=== PATIENT | male | born 1960 | race Caucasian/White ===

== ENCOUNTER 2019-12-15 12:39 | Outpatient (CLI) | payer BC, SELFPAY ==
--- NOTE | ~2019-12-15 | XR_ITS ---
EXAMINATION: XR chest 2V DATE: 12/15/2019 12:55 INDICATION: Cough. Lump on right clavicle. TECHNIQUE: Frontal and lateral views of the chest were obtained. COMPARISON: None. FINDINGS: Bone alignment is normal. No fracture. Joint spaces are well maintained. There is mild righ t acromioclavicular joint osteoarthritis. IMPRESSION: 1. No acute cardiopulmonary disease. Reviewed, dictated and finalized at location A. GE PIPEMAN
== END 2019-12-15 12:40 | disposition home or self-care (01) ==
LOC: ANHIMG 12:45
PROVIDERS: PCP Family Medicine; Visit Provider Physician Assistant Medical
DX: R05 Cough (principal)
CPT/HCPCS: 71046

== ENCOUNTER → 2020-10-23 11:36 | Outpatient (CLI) | payer BC, SELFPAY ==
--- NOTE | ~2020-10-23 | US_ITS ---
EXAMINATION: US soft tissue head and neck EXAM DATE: 10/23/2020 11:59 INDICATION: Right clavicular mass swelling. TECHNIQUE: Multiple grayscale and Doppler images of the right clavicular palpable abnormality were ob tained (by a technologist who performed the scan) and subsequently reviewed. There is no prior study for comparison. FINDINGS: Scanning in patients area of concern demonstrates a well-circumscribed isoechoic region contiguous to the clavicle, appearance is most consistent with an encapsulated lipoma. Recommend neck CT either wi thout or with contrast for further evaluation. IMPRESSION: 1. 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 Reviewed, dictated and finalized at location A. HOLOGIST RESEARCH ASSISTANT IMPRESSION: 1. Subcutaneous mass most likely encapsulated lipoma but CT neck should be obt ained.
== END ==
PROVIDERS: PCP Family Medicine; Visit Provider Physician Assistant
DX: M89.311 Hypertrophy of bone, right shoulder (principal); R22.1 Localized swelling, mass and lump, neck
CPT/HCPCS: 76536

== ENCOUNTER → 2020-11-10 14:43 | Outpatient (CLI) | payer BC, SELFPAY ==
--- NOTE | ~2020-11-10 | CT_ITS ---
EXAMINATION: CT soft tissue neck wo con DATE: 11/10/2020 15:05 INDICATION: Right supraclavicular mass. TECHNIQUE: Computed tomography (CT) of the neck was performed without intravenous contrast. Automated exposure control and iterative reconstruction technique were employed. The dose-length product was 4 12.84 mGy-cm. COMPARISON: Ultrasound 10/23/2020 FINDINGS: There is mucosal thickening in the paranasal sinuses, worst in left maxillary sinus. There are no pathologically enlarged lymph nodes. There are calcifications in the palatine tonsils. The mas toid air cells are normal. There is mild cervical spondylosis. IMPRESSION: 1. No abnormal mass or lymphadenopathy. Reviewed, dictated and finalized at location A. CTION SPECIALIST
== END ==
PROVIDERS: PCP Family Medicine; Visit Provider Physician Assistant
DX: R22.1 Localized swelling, mass and lump, neck (principal)
CPT/HCPCS: 70490

== ENCOUNTER 2022-08-30 00:55 | Day surgery (SDC) | payer BC, SELFPAY ==
[2022-08-23 10:48] VITALS: BMI 30.7
[2022-08-30 11:16] VITALS: BP 153/95; PULSE 75; RESP 16; TEMP 36.6; O2SAT 100; BMI 30.6
--- NOTE | 2022-08-30 11:24 | PM.HPGS ---
History of Present Illness History of Present Illness Consent: Risks, benefits, and alternatives have been discussed and questions answered. Patient agrees to proceed with procedure. Chief complaint: GERD;neoplasm scr, hx colon polyp,fam hx colon ca Narrative: Ramirez Smart is a 61 year old male Presents for screening colonoscopy and EGD. Patient states his current weight appetite bowel movements are normal. He denies abdominal pain. He has had no bleeding. Screening colonoscopy is advised. Patient reports having had a benign colon polyp 2015. Additionally has a family history of colon cancer. Patient has been treated for GE reflux disease. He has been on acid reducing agents for many years. Currently on generic Nexium 40mg p.o. daily this has worked well while he takes the medicine if he stops this he has substernal heartburn. Patient denies any bleeding or weight loss. Review of Systems Review of Systems: Review of systems noncontributory. [facility] Past Medical History Medical History Dyslipidemia Family History Family History Father Family history of malignant neoplasm of esophagus Social History Social History Smoking status: Former smoker Smoking end date: 10/16/90 Alcohol intake: current Drinks per week: 15 Alcohol use details: all kinds Substance use type: does not use Living arrangements: with family Spiritual care concerns: No Meds Home Medications and Allergies Home Medications Medication Instructions Recorded Confirmed Type esomeprazole magnesium 40 mg 40 mg PO DAILY 10/28/19 08/23/22 History capsule,delayed release (Nexium) fluticasone propionate 50 2 spray intranasal DAILY 10/28/19 08/23/22 History mcg/actuation nasal spray,suspension fluoxetine 10 mg capsule 10 mg PO DAILY #90 caps 07/29/22 08/23/22 Rx atorvastatin 10 mg tablet 10 mg PO DAILY 08/23/22 08/23/22 History zolpidem 10 mg tablet 10 mg PO QHS PRN Insomnia 08/23/22 08/23/22 History Allergies Allergy/AdvReac Type Severity Reaction Status Date / Time No Known Allergies Allergy Unknown Verified 08/30/22 11:14 Vital Signs Vital Signs - 24 hr 08/30/22 11:16 Temperature 97.9 F Pulse Rate 75 Respiratory Rate 16 Blood Pressure 153/95 H Pulse Oximetry 100 Oxygen Delivery Room Air Exam Narrative: Physical exam reveals patient to be alert. Vital signs stable. HEENT exam is unremarkable. Patient is anicteric. Lungs are clear to auscultation and percussion. Heart is without murmur or extra sounds. Abdomen bowel sounds present soft nontender with no organomegaly. Digital external rectal exam is normal. Assessment and Plan Assessment and plan (1) GERD with esophagitis: Code(s): K21.00 - Gastro-esophageal reflux disease with esophagitis, without bleeding Status: Acute Assessment and Plan: Patient with chronic GE reflux disease. Currently controlled with esomeprazole 40mg p.o. daily. Plan for EGD because of chronicity of symptoms. Surveillance for potential complications such as Seo's esophagus will be performed. (2) Encounter for screening colonoscopy: Code(s): Z12.11 - Encounter for screening for malignant neoplasm of colon Status: Acute Assessment and Plan: Patient presents for screening colonoscopy. He does have a prior history of colon polyp 2016 and a family history of colon cancer. Further recommendations may be given after endoscopy. (3) History of colon polyps: Code(s): Z86.010 - Personal history of colonic polyps Status: Acute (4) Family hx of colon cancer: Code(s): Z80.0 - Family history of malignant neoplasm of digestive organs Status: Acute
[2022-08-30] MEDS: LACTATED RINGERS 1,000 ML 150 ML IV CONT (11:27)
--- NOTE | 2022-08-30 11:57 | P.PNAN_ITS ---
Anes - Initial Pre Proc Eval Procedure: Operation Date: 08/30/22 12:30 Proposed Procedures p Esophagogastroduodenoscopy & Screening Colonoscopy - Masood Guo MD Date/Time: 08/30/22 11:57 Surgeon: Masood Guo MD Pre Op Diagnosis: GERD;neoplasm scr, hx colon polyp,fam hx colon ca Patient Data Age: 61 Gender: M Height: 1.8 m Weight: 99.6 kg Last Vital Signs Temp 97.9 F 08/30/22 11:16 Pulse 75 08/30/22 11:16 Resp 16 08/30/22 11:16 BP 153/95 H 08/30/22 11:16 Pulse Ox 100 08/30/22 11:16 O2 Del Method Room Air 08/30/22 11:16 Allergies Allergy/AdvReac Type Severity Reaction Status Date / Time No Known Allergies Allergy Unknown Verified 08/30/22 11:14 Home Medications Medication Instructions Recorded Confirmed Type esomeprazole magnesium 40 mg 40 mg PO DAILY 10/28/19 08/23/22 History capsule,delayed release (Nexium) fluticasone propionate 50 2 spray intranasal DAILY 10/28/19 08/23/22 History mcg/actuation nasal spray,suspension fluoxetine 10 mg capsule 10 mg PO DAILY #90 caps 07/29/22 08/23/22 Rx atorvastatin 10 mg tablet 10 mg PO DAILY 08/23/22 08/23/22 History zolpidem 10 mg tablet 10 mg PO QHS PRN Insomnia 08/23/22 08/23/22 History Patient hx anesthesia problems: none Family hx anesthesia problems: none Results Review: All pre-operative results and documents have been reviewed as part of the pre- operative evaluation. [facility] Past Medical History Medical History Dyslipidemia Family History Family History Father Family history of malignant neoplasm of esophagus Social History Social History Smoking status: Former smoker Smoking end date: 10/16/90 Alcohol intake: current Drinks per week: 15 Alcohol use details: all kinds Substance use type: does not use Living arrangements: with family Spiritual care concerns: No Anes - Eval Final PreProcedure Day of Procedure 08/30/22 11:57 Patient weight: obese Heart: regular rate and rhythm Lungs: clear to auscultation Airway: Mallampati scale class II Neurological: alert and oriented Last oral intake: >/= 8 hours ASA classification: II Emergent: no Anesthetic plan: proceed Anesthesia type and monitoring: general GIVS and standard monitoring Results Review: All pre-operative results and documents have been reviewed as part of the pre- operative evaluation. Informed Consent: The patient's anesthetic plan and its attendant risks and benefits were discussed with the patient/family/POA. Questions were solicited and answers provided to the satisfaction of the patient/family/POA.
[2022-08-30] MEDS: SIMETHICONE ORAL SUSPENSION 20 MG/0.3 ML 30 ML BOTTLE 0.6 ML IRRIGATION (12:12)
--- NOTE | 2022-08-30 12:13 | SUR.OPER ---
EGD ended at 1204. Colonoscopy began at 1209.
[2022-08-30 12:23] VITALS: BP 114/76; PULSE 85; RESP 18; O2SAT 100
[2022-08-30 12:33] VITALS: BP 136/82; PULSE 77; RESP 18; O2SAT 95
[2022-08-30 12:43] VITALS: BP 132/90; PULSE 66; RESP 18; O2SAT 97
== END 2022-08-30 12:55 | disposition home or self-care (01) ==
PROVIDERS: PCP Emergency Medicine; Visit Provider Internal Medicine Gastroenterology
PROC: 0DJ08ZZ Inspection of Upper Intestinal Tract, Via Natural or Artificial Opening Endoscopic (ICD-10-PCS; CPT 43235; principal; 2022-08-30 12:30)
DX: Z12.11 Encounter for screening for malignant neoplasm of colon (principal); Z86.010 Personal history of colon polyps; Z80.0 Family history of malignant neoplasm of digestive organs; K21.9 Gastro-esophageal reflux disease without esophagitis; E78.5 Hyperlipidemia, unspecified; Z87.891 Personal history of nicotine dependence
CPT/HCPCS: 43239; 45378; 87081; J2704; J7120